=== PATIENT | male | born 1970 | race Caucasian/White ===

== ENCOUNTER 2023-01-06 07:05 | Emergency (ER) | payer BC, OTHER ==
[2023-01-06] MEDS ORDERED: Sodium Chloride 0.9% 10 ML Syringe FLUSH PRN (07:20)
[2023-01-06] MEDS ORDERED: Diltiazem 25 MG/5 ML SDV IVPUSH ONE (07:22)
[2023-01-06] MEDS ORDERED: Adenosine 6 MG/2 ML SDV IVPUSH ONE (07:24)
[2023-01-06 07:30] LABS: BASOPHILS ABSOLUTE AUTO 0.01 K/mm3 (0.01-0.08); BASOPHILS PERCENT AUTO 0.1 % (0.1-1.2); EOSINOPHILS ABSOLUTE AUTO 0.04 K/mm3 (0.04-0.54); EOSINOPHILS PERCENT AUTO 0.5 (0.8-7.0); HEMATOCRIT 46.3 % (40.1-51.0); HEMOGLOBIN 15.1 gm/dl (13.7-17.5); IMMATURE GRAN ABSOLUTE AUTO 0.02 K/mm3 (0.00-0.10); IMMATURE GRAN PERCENT AUTO 0.2 % (<=1.0); LYMPHOCYTES ABSOLUTE AUTO 1.96 K/mm3 (1.32-3.57); LYMPHOCYTES PERCENT AUTO 22.1 % (21.8-53.1); MEAN CORPUSCULAR HEMOGLOBIN 29.7 pg (25.7-32.2); MEAN CORPUSCULAR HGB CONC 32.6 g/dl (32.2-35.5); MEAN CORPUSCULAR VOLUME 91.1 fl (79.0-92.2); MEAN PLATELET VOLUME 10.5 fl (9.4-12.3); MONOCYTES ABSOLUTE AUTO 0.65 K/mm3 (0.30-0.82); MONOCYTES PERCENT AUTO 7.3 % (5.3-12.2); NEUTROPHILS PERCENT AUTO 69.8 % (34.0-67.9); PLATELET COUNT,PLT 270 K/mm3 (163-337); RED BLOOD CELL COUNT 5.08 M/mm3 (4.63-6.08); WHITE BLOOD CELL COUNT,WBC 8.88 K/mm3 (4.23-9.07)
[2023-01-06] MEDS ORDERED: Diltiazem 125 MG in Sodium Chloride 0.9% 100 ML IV SCH (07:30)
[2023-01-06] MEDS ORDERED: Adenosine 12 MG/4 ML SDV IVPUSH ONE (07:32)
[2023-01-06] MEDS ORDERED: Sodium Chloride 0.9% 1,000 ML IV ONE (07:49)
[2023-01-06 08:18] LABS: ALBUMIN 3.8 g/dl (3.4-5.0); ANION GAP 13.7 (5-15); BILIRUBIN TOTAL 1.1 mg/dL (0.2-1.0); BUN/CREATININE RATIO 12.7 (14-18); CALCIUM 8.4 mg/dL (8.5-10.1); CREATININE 1.5 mg/dL (0.7-1.3); EST CRCL DRUG DOSING (CG) 59.96 mL/min; MAGNESIUM 2.2 mg/dL (1.8-2.4); POTASSIUM,K 4.7 mEq/L (3.5-5.1); PROTEIN TOTAL,TP 7.5 g/dl (6.4-8.2); TSH 2.848 uIU/mL (0.358-3.74)
[2023-01-06] MEDS ORDERED: Apixaban 5 MG Tab PO ONE (10:49)
[2023-01-06 12:51] LABS: CORONAVIRUS COVID-19 NAA NEGATIVE (NEGATIVE); INFLUENZA A NAA NEGATIVE (NEGATIVE); RESPIRATORY SYNCYTIAL VIR NAA NEGATIVE (NEGATIVE)
== END 2023-01-06 13:10 ==
LOC: JD.ED 07:05
DX: I48.92 Unspecified atrial flutter (principal); R77.8 Other specified abnormalities of plasma proteins; Z20.822 Contact with and (suspected) exposure to COVID-19
CPT/HCPCS: 0241U; 36415; 71045; 80053; 83735; 83880; 84443; 84484; 85025; 93005; 96365; 96366; 96375; 96376; 99285; A9270; J0153; J3490; J7030; 93010